=== PATIENT | female | born 1985 | race Caucasian/White ===

== ENCOUNTER → 2017-08-12 | Outpatient (CLI) | payer OTHER ==
[2017-08-16 11:12] LABS: HPV Genotype 16 Not Detected (NOTDET); HPV Genotype 18 Not Detected (NOTDET)
[2017-08-17 14:16] LABS: HPV High Risk Other Not Detected (NOTDET)
== END ==
LOC: LAB SRC 10:49
PROVIDERS: Nurse Practitioner Family
DX: Z01.419 Encounter for gynecological examination (general) (routine) without abnormal findings (principal)
CPT/HCPCS: 87624; G0123